=== PATIENT | male | born 1940 | race Caucasian/White ===

== ENCOUNTER 2024-06-07 11:32 | Inpatient (IN) | payer MEDICARE, BC ==
[~2024-06-07] VITALS: Ht 177.8 cm; Wt 63.6 kg
[2024-06-07 12:27] LABS: BASOPHILS % (AUTO) 0.1 % (0-1); EOSINOPHILS % (AUTO) 0 % (0-6); HEMATOCRIT 45.8 % (42.0-52.0); HEMOGLOBIN 15.7 g/dl (14.0-17.9); LYMPHOCYTES # (AUTO) 0.7 X10'3 (1.1-4.8); LYMPHOCYTES % (AUTO) 7.4 % (21-51); MEAN CORPUSCULAR HEMOGLOBIN 33.1 PG (27.0-31.0); MEAN CORPUSCULAR HGB CONC 34.3 g/dL (33.0-36.5); MEAN CORPUSCULAR VOLUME 96.6 FL (78-98); MEAN PLATELET VOLUME 8.1 FL (7.4-10.4); MONOCYTES % (AUTO) 10.2 % (2-12); NEUTROPHILS % (AUTO) 82.3 % (42-75); PLATELET COUNT 185 X10'3 (140-440); RED BLOOD COUNT 4.74 X10'6 (4.70-6.10); RED CELL DISTRIBUTION WIDTH 15.2 % (11.5-14.5); WHITE BLOOD COUNT 9.7 X10'3 (4.5-11.0)
[2024-06-07 12:48] LABS: ALBUMIN 2.9 G/DL (3.4-5.0); ANION GAP 10 (8-16); BLOOD UREA NITROGEN 25 MG/DL (7-18); BUN/CREATININE RATIO 35.2 (10.0-20.0); CALCIUM 8.8 MG/DL (8.5-10.1); CHLORIDE 105 MMOL/L (99-107); CREATININE 0.71 MG/DL (0.60-1.10); GLUCOSE 103 MG/DL (70-104); POTASSIUM 3.6 MMOL/L (3.5-5.1); PRO BRAIN NATRIURETIC PEPTIDE 256 PG/ML (0-450); SODIUM 141 MMOL/L (135-145); TOTAL CARBON DIOXIDE 25.7 MMOL/L (24-32); eCRCL 68 ML/MIN; eGFR > 90 ML/MIN
[2024-06-07] MEDS ORDERED: CARB-312 PO (13:01)
[2024-06-07] MEDS ORDERED: DONE-55 PO (13:03)
[2024-06-07] MEDS ORDERED: PRAV20TA4 PO (13:03)
[2024-06-07] MEDS ORDERED: MEMA10TA22 PO (13:03)
[2024-06-07] MEDS: azithromycin/NS 500mg/250ml 250 ML IV ONE (14:53)
[2024-06-07] MEDS ORDERED: magnesium sulf-water 4G/100mL 100 ML IV PRN (17:10)
[2024-06-07] MEDS ORDERED: magnesium sulf-water 2g/50mL 50 ML IV PRN (17:10)
[2024-06-07] MEDS ORDERED: potassium Cl 40MEQ/1/2NS 520ml 520 ML IV PRN (17:10)
[2024-06-07] MEDS ORDERED: acetaminophen 325mg tablet PO PRN (17:10)
[2024-06-07] MEDS ORDERED: ondansetron/PF 4mg/2ml inj IV PRN (17:10)
[2024-06-07] MEDS ORDERED: magnesium Cl slow-release 64mg tablet PO PRN (17:10)
[2024-06-07] MEDS ORDERED: potassium Cl 20 mEq SR tablet PO PRN ×2 (17:10)
[2024-06-07] MEDS: normal saline 1000ml 1,000 ML IV SCH (18:46)
[2024-06-07] MEDS: CefTRIAXone/D5W-Rocephin 1gm 50 ML IV SCH (18:46)
[2024-06-07 18:47] LABS: BASOPHILS % (AUTO) 0.1 % (0-1); EOSINOPHILS % (AUTO) 0 % (0-6); HEMATOCRIT 45.2 % (42.0-52.0); HEMOGLOBIN 15.6 g/dl (14.0-17.9); LYMPHOCYTES # (AUTO) 0.5 X10'3 (1.1-4.8); LYMPHOCYTES % (AUTO) 5.1 % (21-51); MEAN CORPUSCULAR HEMOGLOBIN 33.2 PG (27.0-31.0); MEAN CORPUSCULAR HGB CONC 34.6 g/dL (33.0-36.5); MONOCYTES # (AUTO) 0.9 X10'3 (0-0.9); MONOCYTES % (AUTO) 10.2 % (2-12); NEUTROPHILS # (AUTO) 7.5 X10'3 (1.8-7.7); NEUTROPHILS % (AUTO) 84.6 % (42-75); PLATELET COUNT 178 X10'3 (140-440); RED BLOOD COUNT 4.71 X10'6 (4.70-6.10); RED CELL DISTRIBUTION WIDTH 14.9 % (11.5-14.5); WHITE BLOOD COUNT 8.9 X10'3 (4.5-11.0)
[2024-06-07] MEDS: K and/or MAG REPLACEMENT MC SCH (19:13)
[2024-06-07] MEDS: metroNIDAZOLE-Flagyl 500mg/NS 100 ML IV SCH (19:45)
[2024-06-07 23:20] VITALS: PULSE 72; RESP 18; O2SAT 95
[2024-06-08] VITALS (8 sets, daily range): BP systolic 128–151; BP diastolic 55–69; PULSE 58–76; RESP 15–20; TEMP 98.1–98.6; O2SAT 91–94
[2024-06-08] MEDS: ipratropium/albuterol 3ml nebule NEB PRN (03:18)
[2024-06-08 06:22] LABS: BASOPHILS % (AUTO) 0.1 % (0-1); EOSINOPHILS % (AUTO) 0 % (0-6); HEMATOCRIT 46.1 % (42.0-52.0); LYMPHOCYTES # (AUTO) 0.5 X10'3 (1.1-4.8); LYMPHOCYTES % (AUTO) 6.6 % (21-51); MEAN CORPUSCULAR HEMOGLOBIN 33.3 PG (27.0-31.0); MEAN CORPUSCULAR HGB CONC 34.7 g/dL (33.0-36.5); MEAN PLATELET VOLUME 8.5 FL (7.4-10.4); MONOCYTES # (AUTO) 0.8 X10'3 (0-0.9); MONOCYTES % (AUTO) 9.9 % (2-12); NEUTROPHILS # (AUTO) 6.9 X10'3 (1.8-7.7); NEUTROPHILS % (AUTO) 83.4 % (42-75); PLATELET COUNT 172 X10'3 (140-440); RED CELL DISTRIBUTION WIDTH 15.1 % (11.5-14.5); WHITE BLOOD COUNT 8.2 X10'3 (4.5-11.0)
[2024-06-08 06:35] LABS: ALBUMIN 2.7 G/DL (3.4-5.0); ANION GAP 11 (8-16); BLOOD UREA NITROGEN 26 MG/DL (7-18); BUN/CREATININE RATIO 34.7 (10.0-20.0); CALCIUM 8.5 MG/DL (8.5-10.1); CHLORIDE 105 MMOL/L (99-107); CREATININE 0.75 MG/DL (0.60-1.10); GLUCOSE 114 MG/DL (70-104); MAGNESIUM 2.2 MG/DL (1.5-2.4); POTASSIUM 3.7 MMOL/L (3.5-5.1); SODIUM 142 MMOL/L (135-145); TOTAL CARBON DIOXIDE 26.3 MMOL/L (24-32); eCRCL 65 ML/MIN; eGFR > 90 ML/MIN
[2024-06-09 06:00] VITALS: BP 150/72; PULSE 62; RESP 18; TEMP 98.3; O2SAT 92
[2024-06-09 06:15] LABS: BASOPHILS % (AUTO) 0 % (0-1); EOSINOPHILS % (AUTO) 0.1 % (0-6); HEMATOCRIT 42.4 % (42.0-52.0); HEMOGLOBIN 14.5 g/dl (14.0-17.9); LYMPHOCYTES # (AUTO) 0.7 X10'3 (1.1-4.8); LYMPHOCYTES % (AUTO) 8.3 % (21-51); MEAN CORPUSCULAR HEMOGLOBIN 33.1 PG (27.0-31.0); MEAN CORPUSCULAR HGB CONC 34.3 g/dL (33.0-36.5); MEAN CORPUSCULAR VOLUME 96.6 FL (78-98); MONOCYTES # (AUTO) 0.8 X10'3 (0-0.9); MONOCYTES % (AUTO) 9.4 % (2-12); NEUTROPHILS # (AUTO) 7.2 X10'3 (1.8-7.7); NEUTROPHILS % (AUTO) 82.2 % (42-75); PLATELET COUNT 190 X10'3 (140-440); RED BLOOD COUNT 4.39 X10'6 (4.70-6.10); RED CELL DISTRIBUTION WIDTH 14.7 % (11.5-14.5); WHITE BLOOD COUNT 8.8 X10'3 (4.5-11.0)
[2024-06-09 06:33] LABS: ALBUMIN 2.3 G/DL (3.4-5.0); ANION GAP 9 (8-16); BLOOD UREA NITROGEN 28 MG/DL (7-18); BUN/CREATININE RATIO 42.4 (10.0-20.0); CALCIUM 8.7 MG/DL (8.5-10.1); CHLORIDE 109 MMOL/L (99-107); CREATININE 0.66 MG/DL (0.60-1.10); MAGNESIUM 2.1 MG/DL (1.5-2.4); POTASSIUM 3.5 MMOL/L (3.5-5.1); SODIUM 144 MMOL/L (135-145); TOTAL CARBON DIOXIDE 26.5 MMOL/L (24-32); eCRCL 74 ML/MIN; eGFR > 90 ML/MIN
[2024-06-09 06:50] LABS: GLUCOSE 105 MG/DL (70-104)
[2024-06-09 10:00] VITALS: BP 157/69; PULSE 62; RESP 16; TEMP 98.6; O2SAT 93
[2024-06-09 18:00] VITALS: BP 134/65; PULSE 58; RESP 18; TEMP 97.7; O2SAT 94
[2024-06-09 20:50] VITALS: RESP 18; O2SAT 94
[2024-06-10] MEDS: LORazepam 2 mg/ml vial IV ONE (00:10)
[2024-06-10 06:47] VITALS: BP 167/74; PULSE 60; RESP 14; TEMP 97.7; O2SAT 92
[2024-06-10 09:40] VITALS: RESP 18
[2024-06-10 18:00] VITALS: BP 154/76; PULSE 60; RESP 16; TEMP 98.6; O2SAT 93
[2024-06-10 20:00] VITALS: RESP 16
[2024-06-10 20:08] VITALS: PULSE 61; RESP 16; O2SAT 94
[2024-06-10] MEDS: LORazepam 2 mg/ml vial IV PRN (21:25)
[2024-06-11 05:14] LABS: BASOPHILS % (AUTO) 0.3 % (0-1); EOSINOPHILS # (AUTO) 0.1 X10'3 (0-0.9); HEMOGLOBIN 14.2 g/dl (14.0-17.9); LYMPHOCYTES # (AUTO) 1.2 X10'3 (1.1-4.8); LYMPHOCYTES % (AUTO) 15.9 % (21-51); MEAN CORPUSCULAR HGB CONC 34.7 g/dL (33.0-36.5); MEAN CORPUSCULAR VOLUME 95.2 FL (78-98); MEAN PLATELET VOLUME 7.6 FL (7.4-10.4); MONOCYTES # (AUTO) 0.8 X10'3 (0-0.9); MONOCYTES % (AUTO) 10.5 % (2-12); NEUTROPHILS # (AUTO) 5.4 X10'3 (1.8-7.7); NEUTROPHILS % (AUTO) 72.3 % (42-75); PLATELET COUNT 225 X10'3 (140-440); RED CELL DISTRIBUTION WIDTH 14.6 % (11.5-14.5); WHITE BLOOD COUNT 7.5 X10'3 (4.5-11.0)
[2024-06-11 05:31] LABS: ALBUMIN 2.5 G/DL (3.4-5.0); ANION GAP 8 (8-16); BLOOD UREA NITROGEN 31 MG/DL (7-18); BUN/CREATININE RATIO 58.5 (10.0-20.0); CALCIUM 8.7 MG/DL (8.5-10.1); CHLORIDE 115 MMOL/L (99-107); CREATININE 0.53 MG/DL (0.60-1.10); GLUCOSE 88 MG/DL (70-104); MAGNESIUM 1.9 MG/DL (1.5-2.4); POTASSIUM 3.1 MMOL/L (3.5-5.1); SODIUM 151 MMOL/L (135-145); eCRCL 92 ML/MIN; eGFR > 90 ML/MIN
[2024-06-11 06:00] VITALS: BP 161/79; PULSE 54; RESP 16; TEMP 97.5; O2SAT 96
[2024-06-11] MEDS: morphine 2 MG/ML inj. syringe IV PRN (08:13)
[2024-06-11 11:14] VITALS: RESP 16; O2SAT 96
[2024-06-11] MEDS: morphine 10mg/0.5ml (conc. morphine) oral syringe PO PRN ×2 (11:19→14:19)
[2024-06-11] MEDS ORDERED: morphine 2 MG/ML inj. syringe IV PRN (11:25)
[2024-06-11 18:00] VITALS: BP 143/65; PULSE 58; RESP 26; TEMP 98.3; O2SAT 93
[2024-06-11 20:00] VITALS: RESP 24; O2SAT 93
[2024-06-12 06:00] VITALS: BP 128/66; PULSE 90; RESP 16; TEMP 99.2; O2SAT 92
[2024-06-12 11:23] VITALS: RESP 12; O2SAT 96
[2024-06-12 20:00] VITALS: RESP 18
[2024-06-13 05:00] VITALS: BP 45/26; PULSE 95; RESP 16; TEMP 99.5; O2SAT 74
== END 2024-06-13 08:15 | DRG 177 ==
LOC: ER 11:33 → ED HOLD 14:35 → SUR 3N 06-08 15:25
PROVIDERS: ADMIT Internal Medicine; ATTEND Internal Medicine
DX: J69.0 Pneumonitis due to inhalation of food and vomit (principal); J96.01 Acute respiratory failure with hypoxia; E44.0 Moderate protein-calorie malnutrition; G20.A1 Parkinson's disease without dyskinesia, without mention of fluctuations; E86.0 Dehydration; F02.80 Dementia in other diseases classified elsewhere, unspecified severity, without behavioral disturbance, psychotic disturbance, mood disturbance, and anxiety; R13.12 Dysphagia, oropharyngeal phase; Z66 Do not resuscitate; E78.5 Hyperlipidemia, unspecified; G31.83 Neurocognitive disorder with Lewy bodies; Z51.5 Encounter for palliative care; Z68.20 Body mass index [BMI] 20.0-20.9, adult
CPT/HCPCS: 36415; 71045; 80048; 82948; 83605; 83735; 83880; 85025; 87040; 87081; 87502; 87503; 87811; 92508; 92616; 93005; 94640; 94760; 99285; A4649; A6209; A6213; A6223; A6449; A6590; G0378; J0456; J0696; J2060; J2270; J3490; J7030